=== PATIENT | female | born 1985 | race Two or more races ===

== ENCOUNTER 2020-07-15 16:21 | Emergency (ER) | payer SELFPAY ==
[~2020-07-15] VITALS: Ht 157.5 cm; Wt 69.0 kg
--- NOTE | 2020-07-15 18:07 | NUR ---
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
[2020-07-15] MEDS ORDERED: IRON1TAB60 PO (18:32)
[2020-07-15] MEDS ORDERED: BIOT1CAP3 PO (18:32)
[2020-07-15] MEDS ORDERED: ONDANSETRON 2MG/ML, 2ML IVPush ONE (19:00)
[2020-07-15] MEDS ORDERED: MORPHINE SULFATE 4 MG/ML, 1ML IVPush PRN (19:00)
[2020-07-15] MEDS ORDERED: ONDANSETRON 2MG/ML, 2ML ONE (19:03)
[2020-07-15] MEDS ORDERED: MORPHINE SULFATE 4 MG/ML, 1ML ONE (19:03)
[2020-07-15 19:12] LABS: MICROSCOPIC NOT IND
--- NOTE | 2020-07-15 19:17 | NUR ---
PIV PLACED, LABS DRAWN AND COLLECTED BY GLAZE MAKER. MEDS ADMIN PER JAN.
[2020-07-15 19:21] LABS: BASOPHILS # (AUTO) 0.04 x10^3/uL (0-0.1); BASOPHILS % (AUTO) 1 % (0-1); EOSINOPHILS # (AUTO) 0.15 x10^3/uL (0-0.4); EOSINOPHILS % (AUTO) 2 % (1-7); LYMPHOCYTES # (AUTO) 1.89 x10^3/uL (1-3.4); LYMPHOCYTES % (AUTO) 25 % (22-44); MD NO; MEAN CORPUSCULAR HEMOGLOBIN 27.6 pg (27.0-34.8); MEAN CORPUSCULAR HGB CONC 32.9 g/dL (32.4-35.8); MEAN CORPUSCULAR VOLUME 83.8 fL (80-100); MEAN PLATELET VOLUME 8.3 fL (7.4-10.4); MONOCYTES # (AUTO) 0.55 x10^3/uL (0.2-0.8); MONOCYTES % (AUTO) 7 % (2-9); NEUTROPHILS # (AUTO) 5.07 x10^3/uL (1.8-6.8); NEUTROPHILS % (AUTO) 66 % (42-75); PLATELET COUNT 378 x10^3/uL (130-400); RED BLOOD COUNT 5.08 x10^6/uL (3.82-5.3); RED CELL DISTRIBUTION WIDTH 16.6 % (9.6-15.2)
[2020-07-15 19:33] LABS: ALANINE AMINOTRANSFERASE 157 U/L (12-78); ALBUMIN 4.3 g/dL (3.4-5.0); ANION GAP 5 mmol/L (5-15); CALCIUM 8.6 mg/dL (8.5-10.1); CHLORIDE 107 mmol/L (98-107)
[2020-07-15 19:38] LABS: ALKALINE PHOSPHATASE 96 U/L (45-117); BILIRUBIN,TOTAL 0.3 mg/dL (0.2-1.0); CREATININE 0.81 mg/dL (0.55-1.02); TOTAL PROTEIN 8.9 g/dL (6.4-8.2)
--- NOTE | 2020-07-15 19:51 | NUR ---
PT TAKEN TO US
[2020-07-15 20:44] VITALS: BP 95/56
--- NOTE | 2020-07-15 20:45 | NUR ---
ALL RESULTS BACK AT THIS TIME. CHART UP FOR RECHECK.
--- NOTE | 2020-07-15 21:26 | NUR ---
MD AT BEDSIDE TO UPDATE PT ON POC.
--- NOTE | 2020-07-15 21:53 | NUR ---
TASK RN: DC EDUCATION PROVIDED, PT DEMONSTRATES UNDERSTANDING. PT AMBULATED STEADILY TO DC WITH RN. FRIEND TO TRANSPORT PT HOME.
== END 2020-07-15 21:55 | disposition home or self-care (01) ==
LOC: ED 19:28
DX: N83.291 Other ovarian cyst, right side (principal); R10.31 Right lower quadrant pain
CPT/HCPCS: 36415; 76830; 80053; 81003; 83690; 84703; 85025; 96374; 96375; 99284; J2270; J2405